=== PATIENT | female | born 1995 | race African-American/Black ===

== ENCOUNTER 2019-10-05 20:09 | Emergency (ER) | payer SELFPAY ==
[~2019-10-05] VITALS: Ht 170.2 cm; Wt 91.0 kg
[2019-10-05 21:43] LABS: *BARBITURATES SCREEN URINE NEGATIVE (NEGATIVE)
[2019-10-05 21:44] LABS: *AMPHETAMINES SCREEN URINE NEGATIVE (NEGATIVE); *BENZODIAZEPINES SCREEN URINE NEGATIVE (NEGATIVE); *COCAINE SCREEN URINE NEGATIVE (NEGATIVE); METHADONE URINE SCREEN NEGATIVE (NEGATIVE); OPIATES URINE SCREEN NEGATIVE (NEGATIVE); PHENCYCLIDINE URINE SCREEN NEGATIVE (NEGATIVE)
[2019-10-05 21:49] LABS: BASOPHILS % 0.6 % (0.0-2.0); EOSINOPHILS % 2.6 % (0.0-5.0); HEMATOCRIT. 34.6 % (36.0-48.0); HEMOGLOBIN. 11.4 g/dL (12.0-16.0); LYMPHOCYTES % 33.7 % (20.0-50.0); MEAN CORPUSCULAR HEMOGLOBIN 27.5 pg (28.0-32.0); MEAN CORPUSCULAR VOLUME 83.4 fL (81.0-99.0); MEAN PLATELET VOLUME 8.9 fl (7.4-10.4); MONOCYTES % 8.7 % (2.0-8.0); NEUTROPHILS % 54.4 % (40.0-76.0); PLATELET 224 x1000/uL (130-400); RED BLOOD CELL COUNT 4.15 mill/uL (4.2-5.4); RED CELL DISTRIBUTION WIDTH 15.2 % (11.6-14.6)
[2019-10-05 21:51] LABS: CANNABINOID URINE SCREEN PRESUMTIVE POSITIVE (NEGATIVE)
[2019-10-05 21:55] LABS: CHLORIDE 111 mEq/L (98-107)
[2019-10-05 21:56] LABS: HCG SCREEN NEGATIVE
[2019-10-05 22:00] LABS: ETHANOL BLOOD < 10 mg/dL
[2019-10-06] MEDS ORDERED: LORAZEPAM 1MG TABLET PO ONE (18:45)
[2019-10-06] MEDS ORDERED: QUETIAPINE FUMARATE 25MG TABLET PO ONE (21:30)
[2019-10-07] MEDS ORDERED: LORAZEPAM 1MG TABLET PO ONE (11:15)
[2019-10-07] MEDS ORDERED: QUETIAPINE FUMARATE 50MG TABLET PO NR (11:15)
[2019-10-07] MEDS: LORAZEPAM 1MG TABLET PO NR ×2 (11:52→12:53)
[2019-10-07] MEDS ORDERED: HALOPERIDOL LACTATE 5MG/ML VIAL IM ONE (12:30)
[2019-10-07] MEDS ORDERED: LORAZEPAM 2MG/ML CPJ IM PRN (12:30)
[2019-10-08] MEDS ORDERED: QUETIAPINE FUMARATE 50MG TABLET PO NR (06:30)
[2019-10-08] MEDS ORDERED: LORAZEPAM 2MG/ML CPJ IM ONE (07:30)
[2019-10-08] MEDS ORDERED: HALOPERIDOL LACTATE 5MG/ML VIAL IM ONE ×2 (07:45→14:45)
[2019-10-09] MEDS ORDERED: LORAZEPAM 2MG/ML CPJ IM ONE (02:45)
[2019-10-09] MEDS ORDERED: LORAZEPAM 2MG/ML CPJ IM NR (03:00)
[2019-10-09 13:55] VITALS: BP 125/72
== END 2019-10-09 14:15 | disposition home or self-care (01) ==
LOC: ER 20:09
DX: F23 Brief psychotic disorder (principal); R45.851 Suicidal ideations; F31.9 Bipolar disorder, unspecified; F12.10 Cannabis abuse, uncomplicated; I49.9 Cardiac arrhythmia, unspecified; Z78.1 Physical restraint status; Z72.89 Other problems related to lifestyle; Z75.1 Person awaiting admission to adequate facility elsewhere
CPT/HCPCS: 36415; 80053; 80305; 80320; 81025; 84703; 85025; 93005; 99285; J2060; 99284; G0480